=== PATIENT | female | born 1970 | race Caucasian/White ===

== ENCOUNTER 2016-04-19 18:21 | Emergency (ER) | payer OTHER ==
--- NOTE | 2016-04-19 18:38 | PDOC ---
Rapid Medical Evaluation Medical Evaluation: 04/19/16 18:35 45 yo F c/o "not feeling well" (chest tightness/fatigue and breast"cyst".) Discharged from [facility] x2 weeks ago for "blood clot in the heart". PE: abscess under right breast
[2016-04-19 18:43] VITALS: BP 154/98; PULSE 97; TEMP 98.6; BMI 31.4
--- NOTE | 2016-04-19 19:27 | PDOC ---
History of Present Illness <Cynthia Brown - Last Filed: 04/19/16 20:01> - General History Source: Patient Exam Limitations: No Limitations - History of Present Illness Initial Comments: 04/19/16 19:30 Chief complaint: Weakness, problems with her sugar, chest tightness, fatigue, shortness of breath and abscess Patient is a 45-year-old female with a history of insulin dependent diabetes diagnosed in 2001, had improved and then came back. htn, CVA in 2009 who was hospitalized at [facility] for 2 days, discharged on March 26 of this year with a "blood clot in the heart". Patient states that she was discharged and sent home on aspirin 325 but was supposed to be sent home on Lovenox and wasn't. Patient states she doesn't feel well since then she also has an abscess under her breast which she's had for a month. No fever, patient states her sugars have been running higher recently and today was in the 400s. Patient states she has been feeling fatigued, short of breath on and off and some tightness in her chest on and off. Patient also complaining of some pain to the legs. Patient does have a history of neuropathy but states this is a new pain. Patient states sometimes she feels very weak but has not passed out. Patient also complaining of ongoing numbness to the left arm. this has been since before she was in the hospital in early march and is better than it was. GENERAL/CONSTITUTIONAL: No fever, +weakness. dizziness HEAD, EYES, EARS, NOSE AND THROAT: No change in vision. No ear pain or discharge. No sore throat. CARDIOVASCULAR: +chest pain RESPIRATORY: Intermittent shortness of breath, no cough GASTROINTESTINAL: No pain, nausea, vomiting, diarrhea or constipation GENITOURINARY: No dysuria MUSCULOSKELETAL: No neck or back pain SKIN: No rash NEUROLOGIC: No headache, vertigo, loss of consciousness, or loss of sensation. GENERAL: The patient is awake, alert, and fully oriented, in no acute distress. HEAD: Normal with no signs of trauma. EYES: Pupils equal, round and reactive to light, sclera anicteric, conjunctiva clear. ENT: pharynx: no erythema, no exudate, uvula midline NECK: supple CHEST: clear, nontender, rr Small 2 x 3 cm hard tender oval area under right breast, non-cellulitic ABD: soft, nontender EXTREMITIES: Normal range of motion, no edema. strength 5/5 upper and lower extremities. no drift. some decreased sensation to radial aspect by thumb. from. NEUROLOGICAL: Normal speech, normal gait. SKIN: Warm, Dry 04/19/16 20:08 <Janet Dutton - Last Filed: 04/19/16 23:04> - General Chief Complaint: Abscess Boil Stated Complaint: ABCESS UNDER RT BREAST Time Seen by Provider: 04/19/16 18:50 Past History <Cynthia Brown - Last Filed: 04/19/16 20:01> - Past Medical History Cardiac Disorders: Yes (syncope,vertigo,blood clot on heart) Diabetes: Yes HTN: Yes Hypercholesterolemia: Yes Liver Disease: Yes Other medical history: neuropathy - Surgical History Appendectomy: Yes - Psycho/Social/Smoking Cessation Hx Anxiety: No Suicidal Ideation: No Smoking History: Never smoked Have you smoked in the past 12 months: No Information on smoking cessation initiated: No Hx Alcohol Use: No Drug/Substance Use Hx: No Substance Use Type: None <Janet Dutton - Last Filed: 04/19/16 23:04> - Past Medical History Allergies/Adverse Reactions: Allergies Allergy/AdvReac Type Severity Reaction Status Date / Time ampicillin Allergy Verified 04/19/16 18:39 erythromycin base Allergy Verified 04/19/16 18:39 iron Allergy Verified 04/19/16 18:39 valsartan [From Diovan] Allergy Verified 04/19/16 18:39 anasthesia Allergy Uncoded 04/19/16 18:39 milk Allergy Uncoded 04/19/16 18:39 sea food Allergy Uncoded 04/19/16 18:39 Home Medications: Ambulatory Orders Unobtainable [Unobtainable] 04/19/16 *Physical Exam - Vital Signs Last Vital Signs Temp Pulse Resp BP Pulse Ox 98.6 F 97 H 18 154/98 100 04/19/16 18:39 04/19/16 18:39 04/19/16 18:39 04/19/16 18:39 04/19/16 18:39 <Cynthia Brown - Last Filed: 04/19/16 20:01> - Vital Signs Last Vital Signs Temp Pulse Resp BP Pulse Ox 98.6 F 97 H 18 154/98 100 04/19/16 18:39 04/19/16 18:39 04/19/16 18:39 04/19/16 18:39 04/19/16 18:39 <Janet Dutton - Last Filed: 04/19/16 23:04> Heart Score/ECG Review - Risk Factors Risk Factors Heart Score: Yes Hx Hypertension, Yes Hx Diabetes, Yes Hx Obesity - ECG Intrepretation Comment:: 04/19/16 20:09 Normal sinus rhythm at 83, right bundle branch block <Janet Dutton - Last Filed: 04/19/16 23:04> ED Treatment Course - LABORATORY CBC & Chemistry Diagram: 04/19/16 19:41 04/19/16 19:41 <Cynthia Brown - Last Filed: 04/19/16 20:01> - LABORATORY CBC & Chemistry Diagram: 04/19/16 19:41 04/19/16 19:41 <Janet Dutton - Last Filed: 04/19/16 23:04> Medical Decision Making - Medical Decision Making 04/19/16 19:[address] Lenin Sanchez (via answering service) as per Dr. Mccauley at 19:41 Awaiting call back Patient's case discussed with Dr. Juanjose Mcwilliams covering for Dr. Sanchez at 20:00 <Cynthia Brown - Last Filed: 04/19/16 20:01> - Medical Decision Making 04/19/16 20:10 Patient with multiple medical problems, who was recently hospitalized at another hospital and told she had a "blood clot in her heart" now with multiple complaints. Patient will get EKG, labs, cardiac enzymes, troponin, d-dimer, ultrasounds of her legs, check her sugar,. Patient after discussion with Dr. Mccauley will be given a dose Lovenox at 90 mg once and then he will speak with cardiology regarding her history and presentation and proper disposition. 04/19/16 20:44 discussed with PA in [facility] er, normal echo on March 25 with ef 65. was discharged on same meds as before. 04/19/16 21:34 D-dimer is negative, ultrasounds of both lower extremities show no DVT 04/19/16 22:27 Chest x-ray is negative, patient may have small UTI, given that she is diabetic , we will treat Dr. Mccauley had evaluated patient No indication for admission. Patient has had all these symptoms since she was discharged from [facility]. Swelling under the breast has been there for a month, has gotten somewhat worse, not obviously ready for incision and drainage emergently. Patient will be referred to Dr. sanches, surgeon and she will follow-up with her doctor tomorrow 04/19/16 23:04 <Janet Dutton - Last Filed: 04/19/16 23:04> *DC/Admit/Observation/Transfer <Cynthia Brown - Last Filed: 04/19/16 20:01> <Janet Dutton - Last Filed: 04/19/16 23:04> Diagnosis at time of Disposition: Chest pain Qualifiers: Chest pain type: other chest pain Qualified Code(s): R07.89 - Other chest pain Urinary tract infection Qualifiers: Urinary tract infection type: site unspecified Hematuria presence: without hematuria Qualified Code(s): N39.0 - Urinary tract infection, site not specified - Discharge Dispostion Disposition: HOME - Referrals Referrals: STAFF,NOT ON [Primary Care Provider] - - Patient Instructions Printed Discharge Instructions: DI for Urinary Tract Infection (UTI) Additional Instructions: drink plenty of water. monitor blood sugars take the bactrim 1 tab every 12 hours for 3 days return to er if fever, getting sicker follow up with your doctor tomorrow
[2016-04-19] MEDS ORDERED: ENOXAPARIN NA (PORCINE) 100 MG/1 ML DISP.SYRIN SQ ONE ×2 (19:39→19:49)
[2016-04-19] MEDS ORDERED: SODIUM CHLORIDE 1,000 ML IV STA (19:51)
[2016-04-19 19:52] LABS: BASOPHIL 0.5 % (0-2.0); EOSINOPHIL 0.8 % (0-4.5); MCH 22.6 pg (25.7-33.7); MCHC 32.1 g/dl (32.0-36.0); MEAN CELL VOLUME 70.5 fl (80-96); MEAN PLT VOLUME 9.4 fl (7.5-11.1); NEUTROPHILS 61.9 % (42.8-82.8); PLATELET COUNT 163 K/MM3 (134-434); RDW 19.5 % (11.6-15.6); WHITE BLOOD COUNT 5.1 K/mm3 (4.0-10.0)
[2016-04-19 20:04] LABS: URINE APPEARANCE CLEAR; URINE BILIRUBIN NEGATIVE (NEGATIVE); URINE BLOOD NEGATIVE (NEGATIVE); URINE COLOR STRAW; URINE GLUCOSE (UA) 3+ (NEGATIVE); URINE KETONE NEGATIVE (NEGATIVE); URINE NITRITE NEGATIVE (NEGATIVE); URINE PROTEIN NEGATIVE (NEGATIVE); URINE UROBILINOGEN NEGATIVE E.U./dl (0.2-1.0)
[2016-04-19 20:07] LABS: URINE LEUK ESTERASE TRACE (NEGATIVE)
[2016-04-19 20:08] LABS: INR 0.99 (0.82-1.09); PROTHROMBIN TIME (PATIENT) 10.9 SEC (9.98-11.88)
[2016-04-19 20:12] LABS: URINE MUCUS RARE; URINE RBC 2 /hpf (0-3); URINE WBC 7 /hpf (3-5)
[2016-04-19 20:13] LABS: ALBUMIN 3.8 g/dl (3.4-5.0); ANION GAP 9 (8-16); CO2 27 mmol/L (21-32); CREATININE 0.6 mg/dL (0.55-1.02); GLUCOSE,RANDOM 294 mg/dL (74-106); SGOT/AST 29 U/L (15-37); SGPT/ALT 57 U/L (12-78)
[2016-04-19 20:16] LABS: D-DIMER < 200 ng/ml (<200-235)
[2016-04-19 20:17] LABS: ALK PHOS 104 U/L (45-117); BILIRUBIN,TOTAL 0.2 mg/dL (0.2-1.0); TOT PROT 7.9 g/dl (6.4-8.2); TROPONIN I < 0.02 ng/ml (0.00-0.05)
[2016-04-19 20:39] LABS: ANISOCYTOSIS 1+; HYPOCHROMIA 1+; MICROCYTOSIS 1+; OVALOCYTES RARE; PLATELET COMMENT2 RARE GIANT PLTS; PLATELET ESTIMATE ADEQUATE (NORMAL); POIKILOCYTOSIS 1+; POLYCHROMASIA 1+; TEAR DROP CELLS RARE
[2016-04-19] MEDS ORDERED: SULFAMETHOXAZOLE/TRIMETHOPRIM 800MG/160MG D.S. TABLET ONE (22:48)
[2016-04-19] MEDS ORDERED: SULFAMETHOXAZOLE/TRIMETHOPRIM 800MG/160MG D.S. TABLET PO ONE (22:49)
--- NOTE | 2016-04-20 13:15 | EKG ---
Test Reason : Blood Pressure : / mmHG Vent. Rate : 083 BPM Atrial Rate : 083 BPM P-R Int : 180 ms QRS Dur : 144 ms QT Int : 402 ms P-R-T Axes : 043 041 001 degrees QTc Int : 472 ms NORMAL SINUS RHYTHM POSSIBLE LEFT ATRIAL ENLARGEMENT RIGHT BUNDLE BRANCH BLOCK ABNORMAL ECG WHEN COMPARED WITH ECG OF 22-MAY-2003 02:36, SINUS RHYTHM HAS REPLACED ECTOPIC ATRIAL RHYTHM RIGHT BUNDLE BRANCH BLOCK IS NOW PRESENT Confirmed by RICK MACARIO, VIVIANA ([id number]) on 04/20/2016 1:15:31 PM Referred By: Confirmed By:VIVIANA CABRERA MD
== END 2016-04-19 22:52 | disposition home or self-care (01) ==
LOC: JER 18:21
PROC: 3E0337Z Introduction of Electrolytic and Water Balance Substance into Peripheral Vein, Percutaneous Approach (ICD-10-PCS; principal; 2016-04-19)
PROC: 3E013GC Introduction of Other Therapeutic Substance into Subcutaneous Tissue, Percutaneous Approach (ICD-10-PCS; 2016-04-19)
DX: R07.89 Other chest pain (principal); N61.1 Abscess of the breast and nipple; N39.0 Urinary tract infection, site not specified; I10 Essential (primary) hypertension; E11.9 Type 2 diabetes mellitus without complications; Z79.4 Long term (current) use of insulin; E78.00 Pure hypercholesterolemia, unspecified; G62.9 Polyneuropathy, unspecified; Z86.73 Personal history of transient ischemic attack (TIA), and cerebral infarction without residual deficits
CPT/HCPCS: 36415; 71020-TC; 80053; 81003; 81015; 82550; 84484; 84703; 85025; 85379; 85610; 85730; 93005; 93010; 93970-TC; 96360; 96372; 99281-25